=== PATIENT | female | born 1935 | race Caucasian/White ===

== ENCOUNTER → 2020-05-10 11:14 | Outpatient (CLI) | payer OTHER, SELFPAY ==
--- NOTE | ~2020-05-10 | DEXA_ITS ---
Bone Density Report Name: Leatha Tello Age: 85 Sex: Female Ethnicity: White Date of : 1935 Indication: osteopenia; height loss; hysterectomy; Referring Provider: OSWALD DIAZ Study: Bone densitometry was performed. Exam Date: May 10, 2020 Accession number: [id number] Bone Density: Region BMD T-score Z-score Classification AP Spine (L1-L4) 1.072 0.2 3.0 Normal Femoral Neck (Left) 0.599 -2.2 0.2 Osteopenia Total Hip (Left) 0.827 -0.9 1.3 Normal Femoral Neck (Right) 0.712 -1.2 1.2 Osteopenia Total Hip (Right) 0.836 -0.9 1.4 Normal Total Hip Mean 0.832 -0.9 1.4 Normal World Health Organization criteria for BMD impression classify patients as: Normal (T-score at or above -1.0), Osteopenia (T-score between -1.0 and -2.5), or Osteoporosis (T-score at or below -2.5). 10-year Fracture Risk(1): Major Osteoporotic Fracture 17% Hip Fracture 5.8% Reported Risk Factors: [place] (), Neck BMD=0.599, BMI=24.6 (1) FRAX(R) Version 3.08. Fracture probability calculated for an untreated patient. Fracture probability may be lower if the patient has received treatment. Previous Exams: Region Exam Age BMD T-score BMD Change BMD Change Date g/cm2 vs Baseline vs Previous AP Spine(L1-L4) 05/10/2020 85 1.072 0.2 0.037* 0.017 09/24/2006 71 1.055 0.1 0.020 0.020 07/16/2005 70 1.035 -0.1 Total Hip(Left) 05/10/2020 85 0.827 -0.9 -0.076* 0.037* 09/24/2006 71 0.790 -1.2 -0.113* -0.113* 07/16/2005 70 0.903 -0.3 Total Hip(Right) 05/10/2020 85 0.836 -0.9 -0.052* 0.062* 09/24/2006 71 0.773 -1.4 -0.115* -0.115* 07/16/2005 70 0.888 -0.4 *Denotes significance at 95% confidence level, LSC for AP Spine = 0.022 g/cm2, LSC for Total Hip = 0.027 g/cm2 Clinical Information Provided by Patient: Has used the following medications: Vitamin D, Calcium Has the following medical conditions: Hysterectomy Patient maximum height was 66 Menopause Age: 37 Onset of menses at age 16 Number of children 2 Missed period for more than 6 months in a row Impression: The patient has low bone mass, based on the Left Femoral Neck T-score. The patient has an estimated ten-year risk of hip fracture of 5.8% and an estimated ten-year risk of major fracture of 17%, based on the WHO FRAX algorithm. No significant bone loss was observed.
== END ==
PROVIDERS: PCP Internal Medicine; Visit Provider Internal Medicine
DX: Z78.0 Asymptomatic menopausal state (principal); M16.0 Bilateral primary osteoarthritis of hip
CPT/HCPCS: 77080

== ENCOUNTER → 2020-11-13 15:07 | Outpatient (REF) | payer OTHER, SELFPAY | LOC: ANHLAB 15:07 | PROVIDERS: PCP Internal Medicine; Visit Provider Nurse Practitioner | DX: L98.9 Disorder of the skin and subcutaneous tissue, unspecified (principal) | CPT/HCPCS: 88305 ==

== ENCOUNTER → 2020-12-05 08:50 | Outpatient (REF) | payer OTHER, SELFPAY | LOC: ANHLAB 08:50 | PROVIDERS: PCP Internal Medicine; Visit Provider Nurse Practitioner | DX: C44.329 Squamous cell carcinoma of skin of other parts of face (principal) | CPT/HCPCS: 88305; 88331 ==

== ENCOUNTER → 2021-01-01 15:02 | Outpatient (CLI) | payer OTHER, SELFPAY ==
--- NOTE | ~2021-01-01 | US_ITS ---
US retroperitoneal comp 01/01/2021 15:29 Procedure: Realtime transabdominal ultrasound of the kidneys and bladder. Indication: Chronic kidney disease Comparison: Ultrasound dated 06/06/2011 Findings: Renal echotexture is normal bilaterally without hydronephrosis, contour deforming mass or r enal calculus. There is a left renal cyst measuring 2.1 cm medially. The right kidney measures 9.1 cm and left kidney measures 8.7 cm. Bladder within normal limits. Impression: 1: Left renal cyst measuring 2.1 cm. Reviewed, dictated and finalized at location A. ATION NURSE Impression: 1: Left renal cyst measuring 2.1 cm.
== END ==
PROVIDERS: PCP Internal Medicine; Visit Provider Internal Medicine
DX: N28.1 Cyst of kidney, acquired (principal)
CPT/HCPCS: 76770

== ENCOUNTER → 2021-02-04 07:57 | Outpatient (REF) | payer OTHER, SELFPAY | LOC: ANHLAB 07:57 | PROVIDERS: PCP Internal Medicine; Visit Provider Nurse Practitioner | DX: C44.311 Basal cell carcinoma of skin of nose (principal) | CPT/HCPCS: 88305; 88331 ==

== ENCOUNTER → 2021-04-02 14:21 | Outpatient (REF) | payer OTHER, SELFPAY | LOC: ANHLAB 14:21 | PROVIDERS: PCP Internal Medicine; Visit Provider Nurse Practitioner | DX: C44.519 Basal cell carcinoma of skin of other part of trunk (principal); C44.329 Squamous cell carcinoma of skin of other parts of face; L57.0 Actinic keratosis | CPT/HCPCS: 88305 ==

== ENCOUNTER → 2021-05-20 07:31 | Outpatient (REF) | payer OTHER, SELFPAY | LOC: ANHLAB 07:31 | PROVIDERS: PCP Internal Medicine; Visit Provider Nurse Practitioner | DX: C44.519 Basal cell carcinoma of skin of other part of trunk (principal) | CPT/HCPCS: 88305; 88331 ==

== ENCOUNTER 2021-06-04 12:23 | Outpatient (CLI) | payer OTHER, SELFPAY ==
--- NOTE | ~2021-06-04 | CT_ITS ---
EXAMINATION: CT abdomen pelvis wo con EXAM DATE: 06/04/2021 13:06 INDICATION: R10.9 - Unspecified abdominal pain, symptoms 6 months. TECHNIQUE: Spiral CT of the abdomen and pelvis was performed without contrast. Axial, coronal and sag ittal images were reviewed. The dose-length product (DLP) for this examination was 208.95 mGy-cm. T he exposure was tailored according to patient size (auto mA exposure control), and iterative reconstr uction (ASIR) was used as additional dose reduction technique. Comparison is made to prior examinatio n from 06/12/2011. FINDINGS: There is no nephrolithiasis or hydronephrosis. The uterus is not identified and has likel y been surgically resected. The bladder is unremarkable. The liver, spleen, adrenal glands and panc reas are unremarkable. Gallbladder has only mild distention, but has hazy indistinct wall. No calcified cholelithiasis. Diff erential diagnosis includes interstitial edema, chronic liver disease, acute or chronic cholecystitis . If there is right upper quadrant tenderness consider ultrasound or HIDA scan. There is no retrop eritoneal or pelvic lymphadenopathy. There is mild to moderate scattered arteriosclerotic disease. The appendix is not positively visualized. There is no pericecal inflammatory change to suggest appe ndicitis. The stomach and small bowel are unremarkable. There is expected amount of colonic stool. No free intraperitoneal gas. There is cardiomegaly. Pacemaker/AICD lead. Small bilateral pleural effusions. Left basilar granuloma. Small pericardial effusion. There are no osteoblastic or osteol ytic lesions identified. Mild lumbar levoscoliosis. IMPRESSION: 1. Gallbladder with indistinct wall, likely mild edema. Please clinically correlate. 2. Cardiomegaly. Small pleural and pericardial effusions. Reviewed, dictated and finalized at location B. IMPRESSION: 1. Gallbladder with indistinct wall, likely mild edema. Please clinically dalia elate. 2. Cardiomegaly. Small pleural and pericardial effusions.
[2021-06-04 13:21] LABS: Basophils Percent Auto 0.4 % (0.2-1.2); Eosinophils Absolute Auto 0.1 K/mm3 (0-0.3); Eosinophils Percent Auto 1.1 % (0-4.4); Hematocrit 39.9 % (37.0-47.0); Hemoglobin 12.8 g/dL (12.0-15.0); Immature Granulocyte Absolute 0.05 K/mm3 (0.00-0.031); Immature Granulocyte Percent A 0.5 % (0-0.5); Lymphocytes Absolute Auto 2.53 K/mm3 (0.9-3.2); Lymphocytes Percent Auto 26.4 % (18.3-44.2); Mean Corpuscular HGB Conc 32.1 g/dl (32-36); Mean Corpuscular Hemoglobin 29.8 pg (26-34); Mean Platelet Volume 10.8 fl (7.4-10.4); Monocytes Absolute Auto 0.9 K/mm3 (0.1-0.6); Monocytes Percent Auto 9.6 % (2.6-8.5); Neutrophils Absolute Auto 5.9 K/mm3 (1.3-6.7); Platelet Count Result 227 k/mm3 (150-375); Red Blood Count 4.29 M/mm3 (4.2-5.4); Red Cell Distribution Width 13.3 % (11.5-14.5); White Blood Count 9.6 K/mm3 (4.5-10.0)
[2021-06-04 13:33] LABS: Alanine Aminotransferase 32 U/L (4-35); Albumin Level 4.5 g/dL (3.5-5.1); Alkaline Phosphatase 92 U/L (38-126); Amylase 108 U/L (30-110); Anion Gap 6 mmol/L (8-16); Aspartate Amino Transferase 44 U/L (14-36); Bilirubin,Total 0.7 mg/dL (0.2-1.3); Blood Urea Nitrogen 20 mg/dL (7-17); Calcium 9.5 mg/dL (8.4-10.2); Carbon Dioxide 29 mmol/L (22-30); Chloride 105 mmol/L (98-107); Cholesterol 146 mg/dL (0-200); Estimated Glomerular Filt Rate 43; Glucose 93 mg/dL (65-110); HDL Direct 32 mg/dL; Lipase 73 U/L (23-300); Potassium 4.1 mmol/L (3.4-5.0); Sodium 140 mmol/L (137-145); Triglycerides 289 mg/dL (<150)
[2021-06-04 13:44] LABS: LDL Cholesterol Direct 63 mg/dL
== END 2021-06-04 12:24 | disposition home or self-care (01) ==
PROVIDERS: PCP Internal Medicine; Visit Provider Internal Medicine
DX: R10.9 Unspecified abdominal pain (principal); I12.9 Hypertensive chronic kidney disease with stage 1 through stage 4 chronic kidney disease, or unspecified chronic kidney disease; N18.32 Chronic kidney disease, stage 3b; F41.9 Anxiety disorder, unspecified; I48.91 Unspecified atrial fibrillation; E78.2 Mixed hyperlipidemia; I51.9 Heart disease, unspecified; J90 Pleural effusion, not elsewhere classified; M41.9 Scoliosis, unspecified
CPT/HCPCS: 36415; 74176; 80053; 80061; 82150; 83690; 84443; 85025

== ENCOUNTER 2021-06-17 07:57 | Outpatient (CLI) | payer OTHER, SELFPAY ==
--- NOTE | ~2021-06-17 | NM_ITS ---
EXAMINATION: NM hepatobiliary wo pharm DATE: 06/17/2021 11:33 INDICATION: Unspecified abdominal pain. COMPARISON: CT abdomen and pelvis 06/04/2021 TECHNIQUE: 4.7 mCi Tc-99m mebrofenin (Choletec) was administered intravenously. Scintigraphic images of the abdomen were obtained for one hour. Then, the patient drank 8 oz Ensure, and imaging was cont inued for 60 minutes. FINDINGS: There is normal clearance of radiotracer from the blood pool. There is homogeneous tracer u ptake by the liver. Activity progresses to the bowel and gallbladder. Gallbladder ejection fraction (GBEF) was 63%. Note that with this technique, normal GBEF >= 33%. IMPRESSION: 1. Normal hepatobiliary scintigraphy. Reviewed, dictated and finalized at location A.
== END 2021-06-17 07:58 | disposition home or self-care (01) ==
PROVIDERS: PCP Internal Medicine; Visit Provider Internal Medicine
DX: R10.9 Unspecified abdominal pain (principal)
CPT/HCPCS: 78226; A9537

== ENCOUNTER → 2021-08-27 16:16 | Outpatient (REF) | payer OTHER, SELFPAY | LOC: ANHLAB 16:16 | PROVIDERS: PCP Internal Medicine; Visit Provider Nurse Practitioner | DX: L57.0 Actinic keratosis (principal) | CPT/HCPCS: 88305 ==

== ENCOUNTER 2022-09-26 03:42 | Day surgery (SDC) | payer OTHER, SELFPAY ==
[2022-09-17 14:09] VITALS: BMI 22.4
[2022-09-26 08:46] VITALS: BP 158/84; PULSE 93; RESP 17; TEMP 36.6; O2SAT 97; BMI 22.0
[2022-09-26] MEDS: LACTATED RINGERS 1,000 ML 150 ML IV CONT (09:01)
--- NOTE | 2022-09-26 09:22 | WPDANESEPPF ---
Anes - Initial Pre Proc Eval Procedure: Operation Date: 09/26/22 10:00 Proposed Procedures p Esophagogastroduodenoscopy - Luisito Haas MD Date/Time: 09/26/22 09:22 Surgeon: Luisito Haas MD Pre Op Diagnosis: abdominal pain Patient Data Age: 87 Gender: F Height: 1.65 m Weight: 60 kg Last Vital Signs Temp 97.8 F 09/26/22 08:46 Pulse 93 09/26/22 08:46 Resp 17 09/26/22 08:46 BP 158/84 H 09/26/22 08:46 Pulse Ox 97 09/26/22 08:46 O2 Del Method Room Air 09/26/22 08:46 Allergies Allergy/AdvReac Type Severity Reaction Status Date / Time No Known Allergies Allergy Verified 09/26/22 08:43 Home Medications Medication Instructions Recorded Confirmed Type ascorbate calcium (vitamin C) 500 500 mg PO DAILY 06/13/20 09/26/22 History mg tablet furosemide 20 mg tablet 20 mg PO QAM 11/05/21 09/26/22 History Prevagen 1 tab-cap PO DAILY 09/17/22 09/26/22 History apixaban 2.5 mg tablet (Eliquis) 2.5 mg PO BID 09/17/22 09/26/22 History digoxin 125 mcg (0.125 mg) tablet 125 mg PO DAILY 09/17/22 09/26/22 History lorazepam 0.5 mg tablet 0.5 mg PO DAILY PRN anxiety 09/17/22 09/26/22 History melatonin 10 mg capsule 10 mg PO HS 09/17/22 09/26/22 History metoprolol succinate 50 mg 50 mg PO BID 09/17/22 09/26/22 History tablet,extended release 24 hr omeprazole 40 mg capsule,delayed 40 mg PO BID PRN Acid Reflux 09/17/22 09/26/22 History release simvastatin 20 mg tablet 20 mg PO HS 09/17/22 09/26/22 History triamcinolone acetonide 0.1 % 1 applic topical BID PRN Rash 09/17/22 09/26/22 History topical ointment vitamin B complex 1 tablet PO DAILY 09/17/22 09/26/22 History Patient hx anesthesia problems: none Family hx anesthesia problems: none Results Review: All pre-operative results and documents have been reviewed as part of the pre-operative evaluation. 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 Family History Family History Other Family history of lung cancer Family history of primary malignant neoplasm of liver Social History Social History Smoking status: Never smoker Second hand tobacco smoke exposure: No Alcohol intake: current Alcohol use details: Social Substance use: never Substance use type: does not use Lack of Transportation: No Lack of Food: Never True Current Housing: I Have Housing Concerned About Future Housing: No Difficulty Paying Gas/Electric Bills: No Difficulty Paying for Meds: No Currently Unemployed: No Education: High School Diploma/GED Difficulty w/ Childcare or Family Care: No Living arrangements: with family Spiritual care concerns: No Anes - Eval Final PreProcedure Day of Procedure 09/26/22 09:22 Patient weight: normal Heart: regular rate and rhythm Lungs: clear to auscultation Airway: Mallampati scale class II Neurological: alert and oriented Last oral intake: >/= 8 hours ASA classification: III Emergent: no Anesthetic plan: proceed Anesthesia type and monitoring: general GIVS and standard monitoring Results Review: All pre-operative results and documents have been reviewed as part of the pre-operative evaluation. Informed Consent: The patient's anesthetic plan and its attendant risks and benefits were discussed with the patient/family/POA. Questions were solicited and answers provided to the satisfaction of the patient
--- NOTE | 2022-09-26 09:28 | PM.HPGS ---
History of Present Illness History of Present Illness Consent: Risks, benefits, and alternatives have been discussed and questions answered. Patient agrees to proceed with procedure. Chief complaint: abdominal pain Narrative: Leatha Tello is a 87 year old female Presents for EGD. Patient reports having had brief 3 day episode of epigastric pain. Pain is poorly described. Not related to diet or activity. Patient apparently went to the emergency room. At eventually seen by Dr. Sunny Layton. She was given a prescription for omeprazole and took only 2 or 3 doses of this medication. Pain went away after 2-3 days. Is not recurred. Patient referred today for EGD to evaluate more thoroughly. Patient denies any ongoing pain. She denies any dysphagia. She has had no bleeding. Family history noncontributory. Review of Systems Review of Systems: Review of systems noncontributory. 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 Family History Family History Other Family history of lung cancer Family history of primary malignant neoplasm of liver Social History Social History Smoking status: Never smoker Second hand tobacco smoke exposure: No Alcohol intake: current Alcohol use details: Social Substance use: never Substance use type: does not use Lack of Transportation: No Lack of Food: Never True Current Housing: I Have Housing Concerned About Future Housing: No Difficulty Paying Gas/Electric Bills: No Difficulty Paying for Meds: No Currently Unemployed: No Education: High School Diploma/GED Difficulty w/ Childcare or Family Care: No Living arrangements: with family Spiritual care concerns: No Meds Home Medications and Allergies Home Medications Medication Instructions Recorded Confirmed Type ascorbate calcium (vitamin C) 500 500 mg PO DAILY 06/13/20 09/26/22 History mg tablet furosemide 20 mg tablet 20 mg PO QA 11/05/21 09/26/22 History Prevagen 1 tab-cap PO DAILY 09/17/22 09/26/22 History apixaban 2.5 mg tablet (Eliquis) 2.5 mg PO BID 09/17/22 09/26/22 History digoxin 125 mcg (0.125 mg) tablet 125 mg PO DAILY 09/17/22 09/26/22 History lorazepam 0.5 mg tablet 0.5 mg PO DAILY PRN anxiety 09/17/22 09/26/22 History melatonin 10 mg capsule 10 mg PO HS 09/17/22 09/26/22 History metoprolol succinate 50 mg 50 mg PO BID 09/17/22 09/26/22 History tablet,extended release 24 hr omeprazole 40 mg capsule,delayed 40 mg PO BID PRN Acid Reflux 09/17/22 09/26/22 History release simvastatin 20 mg tablet 20 mg PO HS 09/17/22 09/26/22 History triamcinolone acetonide 0.1 % 1 applic topical BID PRN Rash 09/17/22 09/26/22 History topical ointment vitamin B complex 1 tablet PO DAILY 09/17/22 09/26/22 History Allergies Allergy/AdvReac Type Severity Reaction Status Date / Time No Known Allergies Allergy Verified 09/26/22 08:43 Vital Signs Vital Signs - 24 hr 09/26/22 08:46 Temperature 97.8 F Pulse Rate 93 Respiratory Rate 17 Blood Pressure 158/84 H Pulse Oximetry 97 Oxygen Delivery Room Air Exam Narrative: Physical exam reveals patient to be alert. Vital signs stable. HEENT exam is unremarkable. Patient is anicteric. Lungs are clear to auscultation and percussion. Heart is without murmur or extra sounds. Abdominal exam bowel sounds are present soft nontender with no org
[2022-09-26 09:48] VITALS: BP 120/61; PULSE 53; RESP 16; O2SAT 100
[2022-09-26 09:58] VITALS: BP 127/65; PULSE 54; RESP 18; O2SAT 100
[2022-09-26 10:08] VITALS: BP 149/72; PULSE 55; RESP 18; O2SAT 100
== END 2022-09-26 10:18 | disposition home or self-care (01) ==
PROVIDERS: PCP Family Medicine; Visit Provider Internal Medicine Gastroenterology
PROC: 0DJ08ZZ Inspection of Upper Intestinal Tract, Via Natural or Artificial Opening Endoscopic (ICD-10-PCS; CPT 43235; principal; 2022-09-26 10:00)
DX: R10.13 Epigastric pain (principal); I48.91 Unspecified atrial fibrillation; I13.0 Hypertensive heart and chronic kidney disease with heart failure and stage 1 through stage 4 chronic kidney disease, or unspecified chronic kidney disease; I50.9 Heart failure, unspecified; N18.30 Chronic kidney disease, stage 3 unspecified; E78.5 Hyperlipidemia, unspecified; M81.0 Age-related osteoporosis without current pathological fracture; Z95.0 Presence of cardiac pacemaker; Z79.01 Long term (current) use of anticoagulants
CPT/HCPCS: 43239; 87081; J2704; J7120

== ENCOUNTER 2022-10-30 12:35 | Outpatient (NON) | payer OTHER, SELFPAY | END 2022-10-30 12:36 | disposition home or self-care (01) | LOC: ANHLAB 10-31 12:37 | PROVIDERS: PCP Family Medicine; Visit Provider Nurse Practitioner | DX: L57.0 Actinic keratosis (principal) | CPT/HCPCS: 88305 ==